=== PATIENT | male | born 1960 | race Two or more races ===

== ENCOUNTER 2017-01-09 06:18 | Inpatient (IN) | payer OTHER ==
[~2017-01-09] VITALS: Ht 170.2 cm; Wt 93.0 kg
[~2017-01-09 06:18] MED LIST: APAP/HYDROCODON1 T13 PO; COL100 PO; LOV30I SC; PRI20 PO
[2017-01-09 06:45] VITALS: BP 133/92
[2017-01-09 07:04] VITALS: BP 133/92
[2017-01-09 09:41] LABS: MAGNESIUM 2.1 mg/dL (1.8-2.4); PHOSPHOROUS 3.8 mg/dL (2.5-4.9)
[2017-01-09 09:47] LABS: T3 TOTAL 1.66 ng/mL
[2017-01-09 09:50] LABS: CHOLESTEROL/HDL RATIO 5.5
[2017-01-09 10:13] LABS: FREE T4 1.23 ng/dL (0.76-1.46); T4(THYROXINE) 10.5 ug/dL (4.7-13.3)
[2017-01-09 12:46] VITALS: Ht 170.2 cm; Wt 93.0 kg
[2017-01-09 15:20] VITALS: BP 128/73
[2017-01-09 16:10] LABS: BASOPHIL % 0.5 % (0-2); PLATELET COUNT 185 x10^3mcL (130-400); RED CELL DISTRIBUTION WIDTH 13.8 % (11.5-14.5)
[2017-01-09 16:57] LABS: CALCIUM 7.6 mg/dL (8.5-10.1); CHLORIDE SERUM 105 mmol/L (98-107); GFR1 > 60 mL/min; GLUCOSE SERUM 145 mg/dL (74-106); SODIUM SERUM 138 mmol/L (136-145)
[2017-01-09 19:51] VITALS: BP 127/78
[2017-01-10 05:38] VITALS: BP 118/70
[2017-01-10 06:21] LABS: PLATELET COUNT 204 x10^3mcL (130-400); RED CELL DISTRIBUTION WIDTH 13.3 % (11.5-14.5)
[2017-01-10 06:26] LABS: CALCIUM 7.1 mg/dL (8.5-10.1); CARBON DIOXIDE 24.9 mmol/L (21-32); CHLORIDE SERUM 104 mmol/L (98-107); GFR1 > 60 mL/min; GLUCOSE SERUM 137 mg/dL (74-106); POTASSIUM SERUM 3.7 mmol/L (3.5-5.1); SODIUM SERUM 140 mmol/L (136-145)
[2017-01-10 08:16] LABS: BASOPHIL % 0 % (0-2)
[2017-01-10 10:10] VITALS: BP 136/72
[2017-01-10 13:36] VITALS: BP 121/71
[2017-01-10 17:58] VITALS: BP 115/57
[2017-01-10 20:00] VITALS: BP 95/64
[2017-01-10 21:18] VITALS: BP 115/67
[2017-01-10 23:59] LABS: UA SPECIFIC GRAVITY <=1.005 (1.005-1.035); microscopic required? YES; urine erythrocyte 2+ (NEGATIVE)
[2017-01-11 00:09] LABS: AMPHETAMINE QUAL UR NONE DETECTED (NEG <=1000)
[2017-01-11 05:34] VITALS: BP 104/71
[2017-01-11 06:26] LABS: CALCIUM 7.6 mg/dL (8.5-10.1); CARBON DIOXIDE 26.6 mmol/L (21-32); CHLORIDE SERUM 102 mmol/L (98-107); CREATININE SERUM 0.9 mg/dL (0.7-1.3); GFR1 > 60 mL/min; GLUCOSE SERUM 120 mg/dL (74-106); POTASSIUM SERUM 3.5 mmol/L (3.5-5.1); SODIUM SERUM 137 mmol/L (136-145)
[2017-01-11 06:41] LABS: PLATELET COUNT 171 x10^3mcL (130-400); RED CELL DISTRIBUTION WIDTH 13.1 % (11.5-14.5)
[2017-01-11 06:51] LABS: BASOPHIL % 0 % (0-2)
[2017-01-11 09:45] VITALS: BP 124/66
[2017-01-11 16:20] VITALS: BP 124/66; BP 135/76
[2017-01-11 17:21] VITALS: BP 135/76
== END 2017-01-11 21:00 | DRG 470 ==
LOC: DU 06:18 → MU 06:18 → DU 07:30 → MU 12:13 → DU 12:15 → MU 01-10 08:58
PROVIDERS: Neuromusculoskeletal Medicine, Sports Medicine; ADMIT Family Medicine
PROC: 0SRC0J9 Replacement of Right Knee Joint with Synthetic Substitute, Cemented, Open Approach (ICD-10-PCS; principal; 2017-01-09 07:30)
DX: M17.11 Unilateral primary osteoarthritis, right knee (principal); M21.161 Varus deformity, not elsewhere classified, right knee; D64.9 Anemia, unspecified; E83.51 Hypocalcemia; E78.2 Mixed hyperlipidemia; E03.9 Hypothyroidism, unspecified; Z68.32 Body mass index [BMI] 32.0-32.9, adult; Z79.891 Long term (current) use of opiate analgesic; Z96.652 Presence of left artificial knee joint
CPT/HCPCS: 83880; 84439; 94150; 97110-GP; 97116-GP; 97139; 97530-GP; C1713; C1776; J0690; J1170; J1650; J2270; J2274; J2405; J2704; J2765; J3490; J7030; J7120